=== PATIENT | female | born 1960 | race Caucasian/White ===

== ENCOUNTER 2017-02-20 | Emergency (ER) | payer MEDICARE, OTHER ==
[2017-02-20] VITALS: BMI 22.7
[2017-02-20 00:27] VITALS: RESP 16
[2017-02-20 01:20] LABS: BASO # 0.1 K/uL (0.0-0.2); EOS # 0.2 K/uL (0.0-0.7); EOS % 3.5 % (0.0-4.0); HEMATOCRIT 28.4 % (34.0-47.0); LYMPH # 0.8 K/uL (1.0-4.3); LYMPH % 13.6 % (20.0-40.0); MEAN CELL VOLUME 88.9 fL (81.0-99.0); MEAN CORPUSCULAR HEMOGLOBIN 28.5 pg (27.0-31.0); MEAN PLATELET VOLUME 8.5 fL (7.2-11.7); MONO % 16.5 % (0.0-10.0); RED CELL DISTRIBUTION WIDTH 12.9 % (11.5-14.5)
[2017-02-20 01:23] LABS: RBC URINE 1 /hpf (0-3); URINE BACTERIA RARE (<OCC); URINE BILIRUBIN NEGATIVE (NEGATIVE); URINE BLOOD NEGATIVE (NEGATIVE); URINE COLOR Colorless (YELLOW); URINE GLUCOSE (UA) NORMAL (Normal); URINE KETONE NEGATIVE (NEGATIVE); URINE LEUKOCYTE ESTERASE TRACE Leu/uL (Negative); URINE PROTEIN 2+ mg/dL (NEGATIVE); URINE UROBILINOGEN NORMAL mg/dL (0.2-1.0); WBC URINE 3 /hpf (0-5)
[2017-02-20 02:38] LABS: POTASSIUM 4.5 mmol/L (3.6-5.2)
[2017-02-20 02:40] LABS: ALB/GLOB RATIO 1.5 (1.0-2.1); BILIRUBIN,TOTAL 0.1 mg/dL (0.2-1.3); TOTAL PROTEIN 6.3 g/dL (6.3-8.3)
[2017-02-20 02:41] LABS: CALCIUM 9.1 mg/dl (8.6-10.4)
--- NOTE | 2017-02-20 03:01 | C.PDOC ---
History Of Present Illness 56 year old patient, with a past medical history of Anemia, Arthritis, Asthma, CHF, COPD, Depression, Gastritis, HTN, Hypothyroidism, and Lupus nephritis class 4, presents to the ED complaining of diffuse abdominal pain since yesterday, as well as chronic body pain. She denies chest pain, SOB, nausea/ vomiting/diarrhea, dysuria/hematuria. Time Seen by Provider: 02/20/17 00:39 Chief Complaint (Nursing): Abdominal Pain History Per: Patient History/Exam Limitations: no limitations Onset/Duration Of Symptoms: Days (1) Current Symptoms Are (Timing): Still Present Context: Other Severity: Mild Location Of Pain/Discomfort: Diffuse Quality Of Discomfort: "Pain" Exacerbating Factors: None Alleviating Factors: None Last Bowel Movement: Today Past Medical History Reviewed: Historical Data, Nursing Documentation, Vital Signs Vital Signs: Last Vital Signs Temp 98.7 F 02/20/17 03:23 Pulse 75 02/20/17 03:23 Resp 16 02/20/17 03:23 BP 141/75 02/20/17 03:23 Pulse Ox 97 02/20/17 04:59 - Medical History PMH: Anemia, Arthritis, Asthma, CHF, COPD, Depression, Emphysema, Gastritis, HTN , Hypothyroidism, Chronic Kidney Disease (Lupus nephritis class 4) Surgical History: Endoscopy - [facility] Procedures DECORTICATION OF LUNG (06/22/14) DRAINAGE OF LEFT KIDNEY, PERCUTANEOUS APPROACH, DIAGNOSTIC (04/10/16) DRAINAGE OF R PLEURAL CAV WITH DRAIN DEV, PERC APPROACH (04/10/16) DRAINAGE OF R PLEURAL CAV WITH DRAIN DEV, PERC ENDO APPROACH (04/10/16) ENDO EXCISION/DEST OF LESION OR TISSUE OF STOMACH (06/22/14) EXCISION OF RIGHT PLEURA, PERC ENDO APPROACH, DIAGN (04/10/16) EXTRACTION OF RIGHT PLEURA, PERCUTANEOUS ENDOSCOPIC APPROACH (04/10/16) INSERT INTERCOSTAL CATH (03/15/15) LOCAL GASTR EXCISION NEC (11/27/14) OTHER PLEURAL BIOPSY (06/22/14) THORACENTESIS (06/22/14) TRANSFUSE NONAUT RED BLOOD CELLS IN PERIPH VEIN, PERC (10/23/16) VACCINATION NEC (11/27/14) Family History: States: No Known Family Hx - Social History Hx Tobacco Use: No Hx Alcohol Use: No Hx Substance Use: No - Immunization History Hx Tetanus Toxoid Vaccination: No Hx Influenza Vaccination: No Hx Pneumococcal Vaccination: No Review Of Systems Except As Marked, All Systems Reviewed And Found Negative. Constitutional: Negative for: Fever Cardiovascular: Negative for: Chest Pain, Palpitations Respiratory: Negative for: Cough, Shortness of Breath Gastrointestinal: Positive for: Abdominal Pain (diffuse). Negative for: Nausea , Vomiting, Diarrhea Genitourinary: Negative for: Dysuria, Hematuria Skin: Negative for: Rash Physical Exam - Physical Exam Appears: Well, Non-toxic, No Acute Distress Skin: Warm, Dry Head: Normacephalic Oral Mucosa: Moist Cardiovascular: Rhythm Regular Respiratory: Normal Breath Sounds, No Rales, No Rhonchi, No Wheezing Gastrointestinal/Abdominal: Bowel Sounds, Soft, Tenderness (mild diffuse TTP), No Guarding, No Rebound, No Other ((-) Shepherd's, (-) Mcburney's) Back: Normal Inspection, No CVA Tenderness Extremity: Normal ROM Neurological/Psych: Oriented x3 Gait: Steady ED Course And Treatment - Laboratory Results Result Diagrams: 02/20/17 01:17 02/20/17 00:57 O2 Sat by Pulse Oximetry: 97 (RA) Pulse Ox Interpretation: Normal Progress Note: Blood work, UA ordered and reviewed. Patient did not want pain medication. Reevaluation Time: 15:10 Reassessment Condition: Improved (On reassessment, patient is resting comfortably, in no current pain or distress. On exam, abdomen is soft and nontender. Blood work shows anemia and renal insufficiency, both of which patient states are at her baseline. She is comfortable being discharged home. Patient instructed to follow up with PMD in 1-2 days, and understands she should return to ED if symptoms worsen.) Disposition Counseled Patient/Family Regarding: Studies Performed, Diagnosis, Need For Followup, Rx Given - Disposition Referrals: Louis Pierce MD [Staff Provider] - Disposition: HOME/ ROUTINE Disposition Time: 15:10 Condition: STABLE Additional Instructions: SEGUIMIENTO CON ALLEN DOCTOR / CLNICA EN 1-2 MELGAR USE MEDICAMENTOS SEGN LO DIRIGIDO DEVUELVA A LA RAMIREZ DE EMERGENCIA SI LOS SNTOMAS empeoraran Prescriptions: Acetaminophen with Codeine [Tylenol with Codeine #3 Tablet] 1 each PO Q6 PRN # 12 tablet PRN Reason: pain Instructions: Autoimmune Disease (ED), Abdominal Pain (ED) Print Language: YORUBA - POA Present On Arrival: None - Clinical Impression Clinical Impression: Abdominal pain, SLE (systemic lupus erythematosus), Chronic kidney disease - Scribe Statement The provider has reviewed the documentation as recorded by the Scribe Uzma Milan Provider Attestation: All medical record entries made by the Hildaibe were at my direction and personally dictated by me. I have reviewed the chart and agree that the record accurately reflects my personal performance of the history, physical exam, medical decision making, and the department course for this patient. I have also personally directed, reviewed, and agree with the discharge instructions and disposition.
[2017-02-20 03:24] VITALS: BP 141/75; PULSE 75; TEMP 98.7
[2017-02-20 04:56] VITALS: O2SAT 97
== END 2017-02-20 03:27 | disposition home or self-care (01) ==
LOC: C.ER
DX: R10.84 Generalized abdominal pain (principal); M32.14 Glomerular disease in systemic lupus erythematosus

== ENCOUNTER 2018-05-29 10:17 | Emergency (ER) | payer MEDICARE, MEDICAID ==
[2018-05-29 10:17] VITALS: BMI 22.7
[2018-05-29 10:23] VITALS: O2SAT 97
--- NOTE | 2018-05-29 11:19 | RAD ---
Date of service: 05/29/2018 HISTORY: prod cough, fever COMPARISON: 10/23/2016 TECHNIQUE: Chest PA and lateral FINDINGS: LUNGS: Minimal linear scar/atelectasis at left base. As this is unchanged in appearance compared to the prior examination, this most likely represents postinflammatory scar. No infiltrate. PLEURA: No significant pleural effusion identified. No pneumothorax apparent. CARDIOVASCULAR: Normal. OSSEOUS STRUCTURES: No significant abnormalities. VISUALIZED UPPER ABDOMEN: Normal. OTHER FINDINGS: None. IMPRESSION: No active disease.
--- NOTE | 2018-05-29 11:36 | C.PDOC ---
History Of Present Illness 57 y/o female with PMHx of SLE presents to the ED complaining of productive cough, fever/chills, and body aches for 5 days. Cough is productive of green sputum. Patient denies chest pain, SOB, abdominal pain, nausea, vomiting, diarrhea, dysuria/hematuria. Time Seen by Provider: 05/29/18 10:25 Chief Complaint (Nursing): Flu-like Symptoms History Per: Patient History/Exam Limitations: no limitations Onset/Duration Of Symptoms: Days (x5) Current Symptoms Are (Timing): Still Present Location Of Pain: Diffuse Myalgias Associated Symptoms: Fever, Chills, Cough, Sputum Severity: Moderate Past Medical History Reviewed: Historical Data, Nursing Documentation, Vital Signs Vital Signs: Last Vital Signs Temp 99.5 F 05/29/18 11:45 Pulse 80 05/29/18 11:45 Resp 18 05/29/18 11:45 BP 114/68 05/29/18 11:45 Pulse Ox 97 05/29/18 11:55 - Medical History PMH: Anemia, Arthritis, Asthma, CHF, COPD, Depression, Emphysema, Gastritis, HTN , Hypothyroidism, Chronic Kidney Disease (Lupus nephritis class 4) Other PMH: Lupus Surgical History: Endoscopy, - [facility] Procedures DECORTICATION OF LUNG (06/22/14) DRAINAGE OF LEFT KIDNEY, PERCUTANEOUS APPROACH, DIAGNOSTIC (04/10/16) DRAINAGE OF R PLEURAL CAV WITH DRAIN DEV, PERC APPROACH (04/10/16) DRAINAGE OF R PLEURAL CAV WITH DRAIN DEV, PERC ENDO APPROACH (04/10/16) ENDO EXCISION/DEST OF LESION OR TISSUE OF STOMACH (06/22/14) EXCISION OF RIGHT PLEURA, PERC ENDO APPROACH, DIAGN (04/10/16) EXTRACTION OF RIGHT PLEURA, PERCUTANEOUS ENDOSCOPIC APPROACH (04/10/16) INSERT INTERCOSTAL CATH (03/15/15) LOCAL GASTR EXCISION NEC (11/27/14) OTHER PLEURAL BIOPSY (06/22/14) THORACENTESIS (06/22/14) TRANSFUSE NONAUT RED BLOOD CELLS IN PERIPH VEIN, PERC (10/23/16) VACCINATION NEC (11/27/14) Family History: States: No Known Family Hx - Social History Hx Tobacco Use: No Hx Alcohol Use: No Hx Substance Use: No - Immunization History Hx Tetanus Toxoid Vaccination: No Hx Influenza Vaccination: No Hx Pneumococcal Vaccination: No Review Of Systems Constitutional: Positive for: Fever, Chills, Other (Bodyaches) Cardiovascular: Negative for: Chest Pain Respiratory: Positive for: Cough, Sputum. Negative for: Shortness of Breath Gastrointestinal: Negative for: Nausea, Vomiting, Abdominal Pain, Diarrhea Genitourinary: Negative for: Dysuria Skin: Negative for: Rash Physical Exam - Physical Exam Appears: Well, Non-toxic, No Acute Distress Skin: Normal Color, Warm, Dry, No Rash Head: Normacephalic Eye(s): bilateral: Normal Inspection Nose: Normal Oral Mucosa: Moist Throat: Erythema (mild pharyngeal erythema), No Exudate, No Drooling Neck: Supple, Other (no meningimus ) Cardiovascular: Rhythm Regular Respiratory: Normal Breath Sounds, No Accessory Muscle Use, No Rales, No Rhonchi , No Wheezing, Other (coughing occasionally) Gastrointestinal/Abdominal: Normal Exam, Bowel Sounds, Soft, No Tenderness Extremity: Bilateral: Atraumatic, Normal ROM Pulses: Left Radial: Normal, Right Radial: Normal Neurological/Psych: Oriented x3 Gait: Steady ED Course And Treatment - Laboratory Results Lab Interpretation: Normal (negative flu) O2 Sat by Pulse Oximetry: 97 (RA) Pulse Ox Interpretation: Normal - Radiology CXR: Interpreted by Me, Viewed By Me CXR Interpretation: Yes: No Acute Disease. No: Infiltrates Progress Note: CXR and influenza swab ordered and reviewed - both negative for acute findings. Patient's symptoms consistent with viral syndrome. PO tylenol and PO Tessalon given. Reevaluation Time: 11:35 Reassessment Condition: Improved (On reassessment, patient is resting comfortably and fever has dropped appropriately. Rxs for Tylenol and Tessalon given. Patient instructed to drink plenty of fluids, get rest, and to follow up with PMD in 1-2 days. She understands she should return to ED if symptoms worsen.) Disposition Counseled Patient/Family Regarding: Studies Performed, Diagnosis, Need For Followup, Rx Given - Disposition Referrals: Louis Pierce MD [Staff Provider] - Disposition: HOME/ ROUTINE Disposition Time: 11:35 Condition: STABLE Additional Instructions: FOLLOW UP WITH YOUR DOCTOR IN 1-2 DAYS USE MEDICATIONS NEEDED DRINK PLENTY OF FLUIDS AND GET REST RETURN TO EMERGENCY ROOM IF SYMPTOMS WORSEN SEGUIMIENTO CON ALLEN MDICO EN 1-2 MELGAR USE MEDICAMENTOS SEGN SEA NECESARIO ELISSA ABUNDANTE LQUIDO Y DESCANSE REGRESE AL RAMIREZ DE EMERGENCIA SI LOS SNTOMAS EMPEORAN Prescriptions: Acetaminophen [Tylenol 325mg tab] 650 mg PO Q6 PRN #30 tab PRN Reason: pain/fever Benzonatate [Tessalon Perles] 100 mg PO BID PRN #15 sgl PRN Reason: Cough Instructions: Viral Syndrome (DC) Forms: [employer] (Lithuanian) Print Language: IRANIAN - POA Present On Arrival: None - Clinical Impression Clinical Impression: Viral syndrome - Scribe Statement The provider has reviewed the documentation as recorded by the Scribe (Yani Dumas) Provider Attestation: All medical record entries made by the Scribe were at my direction and personally dictated by me. I have reviewed the chart and agree that the record accurately reflects my personal performance of the history, physical exam, medical decision making, and the department course for this patient. I have also personally directed, reviewed, and agree with the discharge instructions and disposition.
[2018-05-29 11:53] VITALS: BP 114/68; PULSE 80; RESP 18; TEMP 99.5
== END 2018-05-29 11:47 | disposition home or self-care (01) ==
LOC: C.ER 10:17
DX: B34.9 Viral infection, unspecified (principal)

== ENCOUNTER 2018-08-27 07:42 | Day surgery (SDC) | payer MEDICARE, MEDICAID ==
[2018-08-27] MEDS ORDERED: Propofol 10 mg/ml Inj (20 ML) ONE (10:21)
[2018-08-27] MEDS ORDERED: Belladonna-Phenobarbital PO STA (10:40)
--- NOTE | 2018-08-27 10:40 | CP.SDSHP ---
Same Day Surgery H & P - History Proposed Procedure: egd Pre-Op Diagnosis: SEE NOTES - Previous Medical/Surgical History Cardiac: Hypertension Endocrine/Metabolic: Thyroid Disease Pain: 2.Mild Pain - Allergies Allergies: Allergies Penicillins Allergy (Verified 08/27/18 09:08) REDNESS - Physical Exam General Appearance: N Vital Signs: Vital Signs 08/27/18 08:50 Temperature 97.7 F Pulse Rate 58 L Respiratory 19 Rate Blood Pressure 97/58 L O2 Sat by Pulse 97 Oximetry Mental Status: Alert & Oriented x3 Neuro: WNL Heart: Other Lungs: WNL GI: WNL - {Optional Preform as Required} Breast: WNL Abdomen: Other Rectal: WNL Integument: WNL : WNL Ortho: WNL ENT: WNL - Impression Pt. Evaluated Today:Candidate for Anesthesia & Procedure: Yes - Date & Time Time: 10:40 Short Stay Discharge - Short Stay Discharge Admitting Diagnosis/Reason for Visit: ENCOUNTER FOR SCREENING FOR MALIGNANT NEOPLASM OF Disposition: HOME/ ROUTINE Referrals: Louis Pierce MD [Primary Care Provider] -
[2018-08-27 12:09] VITALS: TEMP 97.3; O2SAT 99
[2018-08-27 12:16] VITALS: BP 121/55; PULSE 58; RESP 18
== END 2018-08-27 12:10 | disposition home or self-care (01) ==
LOC: C.ENDO 07:42
PROVIDERS: ATTEND Specialist
DX: Z12.11 Encounter for screening for malignant neoplasm of colon (principal); I10 Essential (primary) hypertension; K52.9 Noninfective gastroenteritis and colitis, unspecified; Z88.0 Allergy status to penicillin; K64.4 Residual hemorrhoidal skin tags; K64.8 Other hemorrhoids
CPT/HCPCS: 45380; 88305; J2704; J7040